=== PATIENT | male | born 1965 | race Hispanic/Latino ===

== ENCOUNTER 2016-11-11 05:54 | Day surgery (SDC) | payer OTHER ==
[~2016-11-11] VITALS: Ht 162.6 cm; Wt 72.6 kg
[~2016-11-11 05:54] MED LIST: ACYCLOVIR400 MG PO; BUSPIRONE10 MG PO; BUSPIRONE30 MG PO; MIRTAZAPINE30 M1 PO; NO HOME MEDS; PRAVACHOL20 MG PO; RESTASIS0.05 % OP; UNITHROID25 MCG PO
[2016-11-11 09:38] VITALS: BP 141/84
== END 2016-11-11 09:15 | disposition home or self-care (01) | DRG 558 ==
LOC: ORM 05:54
PROVIDERS: ATTEND Anesthesiology Pain Medicine
PROC: 3E0U33Z Introduction of Anti-inflammatory into Joints, Percutaneous Approach (ICD-10-PCS; principal; 2016-11-11)
PROC: 3E0U3BZ Introduction of Anesthetic Agent into Joints, Percutaneous Approach (ICD-10-PCS; 2016-11-11)
DX: M76.51 Patellar tendinitis, right knee (principal); M25.561 Pain in right knee